=== PATIENT | female | born 1985 | race Hispanic/Latino ===

== ENCOUNTER 2019-01-19 15:00 | Emergency (ER) | payer MEDICAID, SELFPAY ==
--- NOTE | 2019-01-19 15:56 | RAD ---
LEFT ANKLE 3 VIEWS: HISTORY: Fall, left ankle pain. FINDINGS/IMPRESSION: The ankle mortise is maintained. Soft tissue swelling is present. No acute fracture or dislocation is identified. POS: [facility]
== END 2019-01-19 16:23 | disposition home or self-care (01) ==
LOC: ERS 15:00
DX: S93.402A Sprain of unspecified ligament of left ankle, initial encounter (principal); J45.909 Unspecified asthma, uncomplicated; Z79.51 Long term (current) use of inhaled steroids; W19.XXXA Unspecified fall, initial encounter

== ENCOUNTER 2019-09-24 19:34 | Emergency (ER) | payer MEDICAID, SELFPAY ==
[2019-09-24] MEDS ORDERED: Proparacaine 0.5% Opth 15 ML BOT ONE ×2 (20:17→20:19)
[2019-09-24] MEDS ORDERED: Fluorescein Opthalmic Strip ONE (20:17)
[2019-09-24] MEDS ORDERED: Gentamicin Ophth Soln 0.3% 5 ml Bottle ONE (20:45)
== END 2019-09-24 20:51 | disposition home or self-care (01) ==
LOC: ERS 19:34
DX: H10.9 Unspecified conjunctivitis (principal); J45.909 Unspecified asthma, uncomplicated; Z79.51 Long term (current) use of inhaled steroids
CPT/HCPCS: 99283